=== PATIENT | female | born 1935 | race Caucasian/White ===

== ENCOUNTER 2025-09-16 11:11 | Emergency (ER) | payer MEDICARE, BC ==
[~2025-09-16] VITALS: Ht 154.9 cm; Wt 57.1 kg
[2025-09-16 15:23] VITALS: BP 176/113
[2025-09-19] MEDS ORDERED: HYDROCODON-ACE1 EA10 PO (10:55)
== END 2025-09-16 15:23 | disposition home or self-care (01) ==
LOC: ED 11:11
DX: S52.501A Unspecified fracture of the lower end of right radius, initial encounter for closed fracture (principal); W19.XXXA Unspecified fall, initial encounter
CPT/HCPCS: 29125; 73110; 99283-25

== ENCOUNTER 2025-09-18 13:59 | Emergency (ER) | payer MEDICARE, BC ==
[~2025-09-18] VITALS: Ht 154.9 cm; Wt 57.1 kg
[2025-09-18] MEDS ORDERED: DIGOXIN125 MCG PO (14:24)
[2025-09-18] MEDS ORDERED: VITAMIN B-1100 M1 PO (14:24)
[2025-09-18] MEDS ORDERED: LEVOTHYROXINE25 MCG PO (14:24)
[2025-09-18] MEDS ORDERED: ATORVASTATIN CA10 MG PO (14:24)
[2025-09-18] MEDS ORDERED: FUROSEMIDE20 MG PO (14:25)
[2025-09-18] MEDS ORDERED: ASPIRIN81 MG PO (17:25)
[2025-09-18] MEDS ORDERED: BISACODYL10 MG PR (17:26)
[2025-09-18] MEDS ORDERED: VITAMIN D325 MCG PO (17:28)
[2025-09-18] MEDS ORDERED: VITAMIN B-121000 MC3 PO (17:29)
[2025-09-18] MEDS ORDERED: HYDRALAZINE HCL10 MG PO (17:32)
[2025-09-18] MEDS ORDERED: METOPROLOL TARTRATE 50 MG TAB PO ONE (17:45)
[2025-09-18] MEDS ORDERED: DIGOXIN 250 MCG TAB PO ONE (17:45)
[2025-09-18] MEDS ORDERED: VENTOLIN HFA18 GM INH (17:54)
[2025-09-18] MEDS ORDERED: METOPROLOL TAR100 MG PO (17:56)
[2025-09-18] MEDS ORDERED: SENNA8.8 MG/5 M PO (17:57)
[2025-09-18] MEDS ORDERED: MULTI VITAMIN1 EACH PO (18:13)
[2025-09-18 19:40] VITALS: BP 152/98
[2025-09-19] MEDS ORDERED: HYDROCODON-ACE1 EA10 PO (10:55)
== END 2025-09-18 19:40 | disposition home or self-care (01) ==
LOC: ED 13:59
PROVIDERS: Emergency Medicine
DX: I48.91 Unspecified atrial fibrillation (principal); Z79.899 Other long term (current) drug therapy; Z79.82 Long term (current) use of aspirin
CPT/HCPCS: 36415; 80053; 80162; 84484; 85025; 99285